=== PATIENT | female | born 1975 | race African-American/Black ===

== ENCOUNTER 2016-10-30 09:38 | Emergency (ER) | payer MEDICAID, OTHER ==
--- NOTE | 2016-10-30 11:00 | ER Document Report ---
ED General - General Chief Complaint: Back Pain Stated Complaint: FALL/BACK PAIN TRAVEL OUTSIDE OF THE [place] IN LAST 30 DAYS: No - HPI Patient complains to provider of: almost fall upper back pain lower back pain Notes: Patient states she slipped and almost fell at [employer] is able to catch herself and now is experiencing upper back pain lower back pain. Patient denies any other symptoms. Denies falling denies Hitting the floor denies any loss of consciousness. - Related Data Allergies/Adverse Reactions: NSAIDS (Non-Steroidal Anti-Inflamma [Nsaids] Adverse Reaction (Severe, Verified 10/30/16 09:46) abdominal pain Past Medical History - Social History Smoking Status: Current Every Day Smoker Chew tobacco use (# tins/day): No Frequency of alcohol use: Occasional Drug Abuse: None Family History: Reviewed & Not Pertinent Patient has suicidal ideation: No Patient has homicidal ideation: No Renal/ Medical History: Denies: Hx Peritoneal Dialysis GI Medical History: Reports: Hx Gastritis Past Surgical History: Reports: Hx Tubal Ligation - Immunizations Hx Diphtheria, Pertussis, Tetanus Vaccination: Yes Review of Systems - Review of Systems Constitutional: No symptoms reported EENT: No symptoms reported Cardiovascular: No symptoms reported Respiratory: No symptoms reported Gastrointestinal: No symptoms reported Genitourinary: No symptoms reported Female Genitourinary: No symptoms reported Musculoskeletal: Muscle pain Skin: No symptoms reported Hematologic/Lymphatic: No symptoms reported Neurological/Psychological: No symptoms reported -: Yes All other systems reviewed and negative Physical Exam - Vital signs Vitals: Temp Pulse Resp BP Pulse Ox 98.3 F 74 18 120/72 100 10/30/16 09:47 10/30/16 09:47 10/30/16 09:47 10/30/16 09:47 10/30/16 09:47 Interpretation: Normal - General General appearance: Appears well, Alert - HEENT Head: Normocephalic, Atraumatic Eyes: Normal Pupils: PERRL - Respiratory Respiratory status: No respiratory distress Chest status: Nontender Breath sounds: Normal Chest palpation: Normal - Cardiovascular Rhythm: Regular Heart sounds: Normal auscultation Murmur: No - Abdominal Inspection: Normal Distension: No distension Bowel sounds: Normal Tenderness: Nontender Organomegaly: No organomegaly - Back Back: Normal, Tender - Patient has tenderness paraspinal region of the upper back and lower back. This is reproducible. Patient has no midline tenderness to palpation of the spine. Deep tendon reflexes are intact at the knee. - Extremities General upper extremity: Normal inspection, Nontender, Normal color, Normal ROM , Normal temperature General lower extremity: Normal inspection, Nontender, Normal color, Normal ROM , Normal temperature, Normal weight bearing. No: Abhi's sign - Neurological Neuro grossly intact: Yes Cognition: Normal Orientation: AAOx4 [place] Coma Scale Eye Opening: Spontaneous [place] Coma Scale Verbal: Oriented [place] Coma Scale Motor: Obeys Commands [place] Coma Scale Total: 15 Speech: Normal Motor strength normal: LUE, RUE, LLE, RLE Sensory: Normal - Psychological Associated symptoms: Normal affect, Normal mood - Skin Skin Temperature: Warm Skin Moisture: Dry Skin Color: Normal Course - Re-evaluation Re-evalutation: 10/30/16 18:46 Explained to the patient that she does not need x-rays at this time as the most of her tenderness is a soft tissue areas. Explained x-rays only shows fractures. Patient is requesting MRI explained she can follow-up her primary care physician for those testing modalities - Vital Signs Vital signs: Temp Pulse Resp BP Pulse Ox 98.6 F 72 18 109/58 L 100 10/30/16 11:24 10/30/16 11:24 10/30/16 11:24 10/30/16 11:24 10/30/16 11:24 Discharge - Discharge Clinical Impression: Muscle strain Condition: Good Disposition: HOME, SELF-CARE Instructions: Low Back Pain ([facility]), Muscle Strain ([facility]), Oral Narcotic Medication ([facility]) Additional Instructions: You more likely suffered a muscle strain today. Without direct trauma and x- ray only showed any broken bones your examination is not consistent with anything fracture today. He may take Tylenol either patches ice packs 1 packs and Valium prescribed for your pain control. I would highly recommend follow- up with your Dr. Prescriptions: Diazepam [Valium 2 mg Tablet] 2 mg PO Q6HP PRN #15 tablet PRN Reason: Lidocaine [Lidoderm 5% (700 mg) Transdermal Patch] 1 patch TP DAILY #30 adh..patch Forms: Return to Work
[2016-10-30] MEDS ORDERED: LIDOCAINE 5% (700 MG) TRANSDERMAL ADH..PATCH TP ONE (11:01)
[2016-10-30 11:25] VITALS: BP 109/58
== END 2016-10-30 11:25 | disposition home or self-care (01) ==
LOC: ER 09:38
DX: T14.8 Other injury of unspecified body region (principal); M54.89 Other dorsalgia; M54.5 Low back pain; W18.40XA Slipping, tripping and stumbling without falling, unspecified, initial encounter; Y92.512 Supermarket, store or market as the place of occurrence of the external cause; F17.200 Nicotine dependence, unspecified, uncomplicated
CPT/HCPCS: 99283